=== PATIENT | male | born 1955 | race African-American/Black ===

== ENCOUNTER 2017-02-26 21:06 | Emergency (ER) | payer MEDICAID ==
[~2017-02-26] VITALS: Ht 172.7 cm; Wt 100.0 kg
[~2017-02-26 21:06] MED LIST: ALLO100T PO; ATOR20TA65 PO; COR6 PO; FURO-152 PO; GABA-531 PO; LOSA25TA12 PO; POTASSIUM; TAMS-11 PO; WARF4TAB40 PO; WARF7.5T22 PO
[2017-02-26] MEDS ORDERED: ASPIRIN 81MG TABLET PO ONE (22:30)
[2017-02-26] MEDS: NITROGLYCERIN 0.4MG TABLET SL SL PRN ×3 (22:34→22:44)
[2017-02-26 23:05] LABS: BASOPHILS % 0.8 % (0.0-2.0); EOSINOPHILS % 2.4 % (0.0-5.0); HEMATOCRIT. 41.2 % (42.0-52.0); HEMOGLOBIN. 13.5 g/dL (14.0-18.0); LYMPHOCYTES % 22.1 % (20.0-50.0); MEAN CORPUSCULAR HEMOGLOBIN 27.3 pg (28.0-32.0); MEAN CORPUSCULAR VOLUME 83.2 fL (80.0-94.0); MONOCYTES % 9.1 % (2.0-8.0); NEUTROPHILS % 65.6 % (40.0-76.0); PLATELET 195 x1000/uL (130-400); RED BLOOD CELL COUNT 4.95 mill/uL (4.7-6.1)
[2017-02-26 23:17] LABS: PROTHROMBIN TIME 50.5 sec (9.4-11.6)
[2017-02-26 23:21] LABS: CARBON DIOXIDE 33 mEq/L (21-32); CHLORIDE 106 mEq/L (98-107); TROPONIN I < 0.02 ng/mL (0.00-0.04)
[2017-02-27 01:33] LABS: INR 4.8
[2017-02-27 04:01] VITALS: BP 119/89
== END 2017-02-27 04:04 | disposition home or self-care (01) ==
LOC: ER 21:06
DX: R07.89 Other chest pain (principal); I11.0 Hypertensive heart disease with heart failure; I50.9 Heart failure, unspecified; E78.00 Pure hypercholesterolemia, unspecified; E11.9 Type 2 diabetes mellitus without complications; I48.91 Unspecified atrial fibrillation; Z79.01 Long term (current) use of anticoagulants
CPT/HCPCS: 36415; 71010; 80053; 83880; 84484; 85025; 85610; 93005; 99285

== ENCOUNTER 2017-11-13 22:49 | Emergency (ER) | payer MEDICAID ==
[~2017-11-13] VITALS: Ht 172.7 cm; Wt 100.0 kg
[2017-11-14] MEDS ORDERED: BACITRACIN ZINC OINT UDPKT TOP ONE (02:00)
[2017-11-14] MEDS ORDERED: LIDOCAINE HCL/PF 1% 2ML VIAL INFIL ONE (02:00)
[2017-11-14] MEDS ORDERED: LIDOCAINE HCL/PF 1% 10 MG/ML 5ML VIAL IJ NR (02:30)
[2017-11-14 05:25] VITALS: BP 121/70
== END 2017-11-14 05:27 | disposition home or self-care (01) ==
LOC: ER 22:49
DX: S61.212A Laceration without foreign body of right middle finger without damage to nail, initial encounter (principal); S61.214A Laceration without foreign body of right ring finger without damage to nail, initial encounter; W26.0XXA Contact with knife, initial encounter; Y93.89 Activity, other specified; Y92.010 Kitchen of single-family (private) house as the place of occurrence of the external cause; I11.9 Hypertensive heart disease without heart failure; E11.9 Type 2 diabetes mellitus without complications; Z79.01 Long term (current) use of anticoagulants; Z79.899 Other long term (current) drug therapy
CPT/HCPCS: 12001; 99283; A4217; J3490; Z7610

== ENCOUNTER 2020-06-12 14:30 | Emergency (ER) | payer MEDICAID ==
[~2020-06-12] VITALS: Ht 177.8 cm; Wt 83.0 kg
[~2020-06-12 14:30] MED LIST changes: -LOSA25TA12 PO; +LOSA25TA26 PO
[2020-06-12 14:50] VITALS: BP 112/78
[2020-06-12] MEDS ORDERED: ACETAMINOPHEN 325MG TABLET PO ONE (16:00)
== END 2020-06-12 17:35 | disposition home or self-care (01) ==
LOC: ER 14:37
DX: R50.9 Fever, unspecified (principal); I11.0 Hypertensive heart disease with heart failure; I50.9 Heart failure, unspecified; E11.9 Type 2 diabetes mellitus without complications; M10.9 Gout, unspecified; E78.00 Pure hypercholesterolemia, unspecified; I25.2 Old myocardial infarction; I25.10 Atherosclerotic heart disease of native coronary artery without angina pectoris; Z95.1 Presence of aortocoronary bypass graft; Z79.01 Long term (current) use of anticoagulants
CPT/HCPCS: 71045; 82962; 99283